=== PATIENT | female | born 1990 | race Caucasian/White ===

== ENCOUNTER 2017-11-20 21:22 | Emergency (ER) | payer OTHER ==
[2017-11-20] MEDS: NORCO 5/325MG TABLET (BULK FOR ED) PO (23:31)
== END 2017-11-20 23:35 | disposition home or self-care (01) ==
LOC: M ED 23:35
DX: S89.91XA Unspecified injury of right lower leg, initial encounter (principal); W18.42XA Slipping, tripping and stumbling without falling due to stepping into hole or opening, initial encounter; Y92.096 Garden or yard of other non-institutional residence as the place of occurrence of the external cause
CPT/HCPCS: 73564